=== PATIENT | male | born 1960 | race Caucasian/White ===

== ENCOUNTER → 2020-12-18 | Outpatient (CLI) | payer OTHER ==
[~2020-12-18] MED LIST: RT-ALBUTEROL SULF 2.5 MG/3 ML PRE-MIX VIAL INH ONE
== END ==
LOC: RT 09:30
PROVIDERS: ATTEND Family Medicine
DX: Z02.71 Encounter for disability determination (principal)
CPT/HCPCS: 94060

== ENCOUNTER → 2021-01-30 | Outpatient (CLI) | payer MEDICAID ==
--- NOTE | 2021-01-30 10:15 | Diagnostic Imaging Report ---
PROCEDURE: CT chest without contrast. TECHNIQUE: Multiple contiguous axial images were obtained through the chest without the use of intravenous contrast. Auto Exposure Controls were utilized during the CT exam to meet ALARA standards for radiation dose reduction. INDICATION: Dyspnea COMPARISON: None available FINDINGS: Lymph nodes throughout the chest and visualized lower neck appear diffusely prominent. This includes a right tracheobronchial lymph node which is enlarged measuring 2.3 x 1.4 cm as well as a right paraesophageal lymph node which measures 1.6 x 1.2 cm. Mild scattered vascular calcifications without aneurysmal dilatation of the thoracic aorta. The heart is within normal limits in size. No pericardial effusion. No pleural effusion. No pneumothorax. Mild background emphysematous changes are identified. Background interstitial lung changes are identified with reticular opacities noted throughout the lungs bilaterally, greatest within the periphery of the lungs. This is associated with geographic groundglass opacities, greatest within the right lung, particularly the right upper lobe. Diffuse bronchiectatic changes are noted throughout the lungs bilaterally. Some regions of honeycombing are identified, particularly involving the anterior aspect of the right upper lobe. 0.8 x 0.8 cm pleural-based lingular pulmonary nodules present, series 3, image 68. 0.9 cm right middle lobe pulmonary nodule, series 3, image 68. 0.8 cm right upper lobe pulmonary nodule, series 3, image 34. Additional sub-0.6 cm pulmonary nodules are noted bilaterally. The trachea is patent. An enlarged paulino hepatic lymph node is present measuring 3.5 x 2.4 cm. IMPRESSION: Background interstitial lung disease with associated honeycombing within the anterior aspect of the upper lobes. Findings are concerning for a usual interstitial pneumonia pattern. Given the honeycombing within the upper lobes, this suggests this could relate to underlying connective tissue disorder interstitial lung disease. Bilateral subcentimeter pulmonary nodules. Recommend a follow-up CT of the chest in 3 months to reevaluate. Mild diffuse adenopathy throughout the chest and visualized upper abdomen. This is of uncertain etiology. Recommend correlation with laboratory values as this could relate to an infiltrative process such as lymphoma. Granulomatous disease would be an additional consideration. Dictated by: Dictated on workstation # [id number]
== END ==
LOC: RAD 09:00
PROVIDERS: ATTEND Pediatrics
DX: J84.9 Interstitial pulmonary disease, unspecified (principal); R91.8 Other nonspecific abnormal finding of lung field; R59.0 Localized enlarged lymph nodes
CPT/HCPCS: 71250; 93306

== ENCOUNTER → 2021-04-15 | Outpatient (CLI) | payer MEDICAID, OTHER ==
--- NOTE | 2021-04-15 10:04 | Diagnostic Imaging Report ---
INDICATION: Chronic shoulder pain. COMPARISON: None. FINDINGS: Two views of the right shoulder demonstrate minimal degenerative change of the AC and glenohumeral joints. There is no fracture or dislocation. No osseous lesion is seen. Infiltrates are seen in the right upper lobe. IMPRESSION: Minimal degenerative changes. No fracture. Dictated by: Dictated on workstation # [id number]
--- NOTE | 2021-04-15 10:49 | Diagnostic Imaging Report ---
INDICATION: Chronic bilateral wrist pain. FINDINGS: Two views of each wrist were obtained which show no fracture, dislocation, or other acute abnormality. There is narrowing of the carpometacarpal joint space of the 1st digit of the left hand. There is mild subchondral sclerosis. No avascular necrosis is evident. IMPRESSION: There are mild degenerative changes present with no acute abnormality seen. Dictated by: Dictated on workstation # [id number]
== END ==
LOC: RAD 09:01
PROVIDERS: ATTEND Anesthesiology Pain Medicine
DX: Z02.71 Encounter for disability determination (principal); M19.032 Primary osteoarthritis, left wrist; M19.031 Primary osteoarthritis, right wrist; M25.511 Pain in right shoulder
CPT/HCPCS: 73030

== ENCOUNTER → 2021-09-22 | Outpatient (CLI) | payer OTHER | LOC: RT 11:31 | PROVIDERS: ATTEND Anesthesiology Pain Medicine | DX: Z02.71 Encounter for disability determination (principal); R06.02 Shortness of breath; R05.3 Chronic cough | CPT/HCPCS: 94060 ==

== ENCOUNTER → 2021-09-22 | Outpatient (CLI) | payer OTHER ==
--- NOTE | 2021-09-22 13:36 | Diagnostic Imaging Report ---
INDICATION: Neck pain. TIME OF EXAM: 11:47 AM. TECHNIQUE: Five views of the cervical spine were obtained. FINDINGS: There is some straightening of the normal cervical lordotic curvature. Significant degenerative disc disease is noted at the C4-C5, C5-C6, and C6-C7 levels with disc space narrowing and marginal spurring. The prevertebral tissues are normal. There appears to be neuroforaminal narrowing at the C4-C5 level on the left side. No fractures are identified. The odontoid is intact. IMPRESSION: Cervical spondylosis. No acute bony abnormality is detected. Dictated by: Dictated on workstation # [id number]
== END ==
LOC: RAD 11:38
PROVIDERS: ATTEND Anesthesiology Pain Medicine
DX: Z02.71 Encounter for disability determination (principal)
CPT/HCPCS: 72050